=== PATIENT | female | born 1980 | race Asian ===

== ENCOUNTER → 2024-02-24 11:51 | Outpatient (REF) | payer BC, SELFPAY | LOC: WDC 11:51 | PROVIDERS: ATTENDING PHYSICIAN Obstetrics & Gynecology | DX: Z12.31 Encounter for screening mammogram for malignant neoplasm of breast (principal) | CPT/HCPCS: 77063; 77067 ==

== ENCOUNTER → 2025-02-28 11:49 | Outpatient (REF) | payer BC, SELFPAY | LOC: WDC 11:49 | PROVIDERS: ATTENDING PHYSICIAN Obstetrics & Gynecology | DX: Z12.31 Encounter for screening mammogram for malignant neoplasm of breast (principal) | CPT/HCPCS: 77063; 77067 ==